=== PATIENT | female | born 1955 | race Caucasian/White ===

== ENCOUNTER 2023-05-29 11:09 | Emergency (ER) | payer MEDICARE ==
[~2023-05-29] VITALS: Ht 165.1 cm; Wt 104.2 kg
[2023-05-29] MEDS ORDERED: LOSA50TA28 PO (11:34)
[2023-05-29] MEDS ORDERED: LEVO150T7 PO (11:34)
[2023-05-29] MEDS ORDERED: B-12100010 PO (11:34)
[2023-05-29] MEDS ORDERED: OMEP40CA4 PO (11:34)
[2023-05-29] MEDS ORDERED: LIDOCAINE 1% MDV 20ML VIAL As Ordered ONE (15:06)
[2023-05-29 15:17] LABS: ALBUMIN 3.2 G/DL (3.2-5.2); BILIRUBIN,DIRECT 0.8 MG/DL (<0.4); BILIRUBIN,TOTAL 1.5 MG/DL (0.3-1.2); TOTAL PROTEIN 6.5 G/DL (5.7-8.2)
[2023-05-29 15:18] LABS: BASO % 0.1 % (0.0-1.0); HEMATOCRIT 30.7 % (36.0-47.0); HEMOGLOBIN 9.9 g/dl (12.0-15.5); LYMPH % 27.2 % (24.0-44.0); MEAN CORPUSCULAR HEMOGLOBIN 34.6 pg (27.0-33.0); MEAN CORPUSCULAR HGB CONC 32.2 g/dl (32.0-36.5); MEAN CORPUSCULAR VOLUME 107.3 fl (80.0-96.0); MONO # 0.8 10^3/uL (0.0-0.8); MONO % 10.6 % (2.0-8.0); NEUTROPHILS # 4.5 10^3/uL (1.5-8.5); NEUTROPHILS % 61.4 % (36.0-66.0); RED BLOOD COUNT 2.86 10^6/uL (4.00-5.40); WHITE BLOOD COUNT 7.3 10^3/uL (4.0-10.0)
[2023-05-29 16:26] LABS: INR 0.99; PROTHROMBIN TIME 13.3 SECONDS (12.5-14.5)
[2023-05-29 16:27] LABS: PARTIAL THROMBOPLASTIN TIME 32.2 SECONDS (24.8-34.2)
[2023-05-29 16:32] LABS: BLOOD UREA NITROGEN 12 MG/DL (9-23); CALCIUM LEVEL 8.7 MG/DL (8.3-10.6); CARBON DIOXIDE LEVEL 24 MMOL/L (20-31); CHLORIDE LEVEL 100 MMOL/L (98-107); GLOMERULAR FILTRATION RATE > 60.0 (>45); GLUCOSE, FASTING 83 MG/DL (74-106); POTASSIUM SERUM 3.6 MMOL/L (3.5-5.1); SODIUM LEVEL 131 MMOL/L (136-145)
[2023-05-30 00:16] VITALS: BP 146/70; TEMP 98.7; O2SAT 98
== END 2023-05-30 01:18 | disposition home or self-care (01) ==
LOC: M ED 11:09
DX: R94.5 Abnormal results of liver function studies (principal); R74.8 Abnormal levels of other serum enzymes; E11.9 Type 2 diabetes mellitus without complications; I10 Essential (primary) hypertension; E03.9 Hypothyroidism, unspecified; E78.5 Hyperlipidemia, unspecified; C22.1 Intrahepatic bile duct carcinoma; Z79.899 Other long term (current) drug therapy
CPT/HCPCS: 36415; 36556; 74181; 76705; 76937; 80048; 80076; 81001; 82140; 83690; 85025; 85610; 85730; 99284; C1751